=== PATIENT | female | born 1980 | race Caucasian/White ===

== ENCOUNTER 2016-12-28 14:30 | Inpatient (IN) | payer BC ==
[~2016-12-28] VITALS: Ht 157.5 cm; Wt 68.2 kg
[2017-02-02] VITALS (42 sets, daily range): BP systolic 75–137; BP diastolic 49–87; PULSE 51–114; TEMP 97.8–98.8
[2017-02-02 07:59] LABS: MEAN CELL VOLUME 89 fl (80.0-100.0); MEAN CORPUSCULAR HGB CONC 34 g/dl (33.0-37.0); MEAN PLATELET VOLUME 11.1 fl (7.4-10.4); PLATELET COUNT 167 K/mm3 (130-400); RED BLOOD COUNT 3.87 M/mm3 (4.10-5.30); WHITE BLOOD COUNT 12.3 K/mm3 (4.8-10.8)
[2017-02-02 08:15] LABS: HEMATOCRIT 34.3 % (37.0-47.0); HEMOGLOBIN 11.6 g/dl (12.5-16.0); MEAN CORPUSCULAR HEMOGLOBIN 30 pg (27.0-31.0)
[2017-02-02 08:16] LABS: ADD PATHOLOGY DIFF REVIEW NO
[2017-02-02 08:51] LABS: BAND 5 % (0-10); LYMPHOCYTE 17 % (20.0-51.0); NEUTROPHILS 73 % (42.0-75.2); PLATELET ESTIMATE NORMAL (NORMAL); TOTAL CELLS COUNTED 100
[2017-02-03 01:00] VITALS: BP 119/58; PULSE 78; TEMP 98.5
[2017-02-03 03:00] VITALS: BP 121/68; PULSE 70; TEMP 98.1
[2017-02-03] MEDS ORDERED: PERCOCET 325 MG1 TA2 PO (07:26)
[2017-02-03] MEDS ORDERED: IBU800 M1 PO (07:26)
[2017-02-03 07:55] VITALS: BP 100/84; PULSE 97; TEMP 97.6
[2017-02-03 12:10] VITALS: BP 116/68; PULSE 80; TEMP 98.5
[2017-02-03 17:00] VITALS: BP 110/62; PULSE 73; TEMP 97.8
[2017-02-03 20:00] VITALS: BP 109/73; PULSE 91; TEMP 97.7
[2017-02-04 08:00] VITALS: BP 110/80; PULSE 88; TEMP 98.2
== END 2017-02-04 16:00 | disposition home or self-care (01) | DRG 775 ==
LOC: OB 01-27 14:29 → LDR 02-02 07:03 → OB 02-02 11:39
PROVIDERS: Obstetrics & Gynecology
PROC: 10E0XZZ Delivery of Products of Conception, External Approach (ICD-10-PCS; principal; 2017-02-02)
PROC: 0KQM0ZZ Repair Perineum Muscle, Open Approach (ICD-10-PCS; 2017-02-02)
PROC: 3E033VJ Introduction of Other Hormone into Peripheral Vein, Percutaneous Approach (ICD-10-PCS; 2017-02-02)
DX: O48.0 Post-term pregnancy (principal); O99.824 Streptococcus B carrier state complicating childbirth; O70.1 Second degree perineal laceration during delivery; Z3A.40 40 weeks gestation of pregnancy; Z37.0 Single live birth
CPT/HCPCS: J2540; J2590; J2795; J7120